=== PATIENT | female | born 1975 | race Caucasian/White ===

== ENCOUNTER 2020-11-20 17:14 | Emergency (ER) | payer OTHER ==
[~2020-11-20 17:14] MED LIST: IBUPROFEN800 MG PO
[2020-12-23] MEDS ORDERED: TUMS200 MG PO (12:34)
[2020-12-23] MEDS ORDERED: TRIAMCINOLONE 080 GM TOP (12:35)
[2020-12-23] MEDS ORDERED: ACETAMINOPHEN325 MG PO (12:50)
[2020-12-23] MEDS ORDERED: ZANTAC150 MG PO (12:51)
[2020-12-23] MEDS ORDERED: ASPIRIN EC81 MG PO (12:51)
[2020-12-31] MEDS ORDERED: AIRBORNE CHEWA1 EAC1 PO (07:34)
== END 2020-11-20 19:59 | disposition home or self-care (01) ==
LOC: FER 17:14
DX: D17.1 Benign lipomatous neoplasm of skin and subcutaneous tissue of trunk (principal); E11.9 Type 2 diabetes mellitus without complications; Z87.19 Personal history of other diseases of the digestive system; Z91.012 Allergy to eggs; Z79.82 Long term (current) use of aspirin; Z79.899 Other long term (current) drug therapy
CPT/HCPCS: 71250

== ENCOUNTER → 2020-12-31 | Day surgery (SDC) | payer OTHER ==
[~2020-12-31] MED LIST changes: +ACETAMINOPHEN325 MG PO; +AIRBORNE CHEWA1 EAC1 PO; +ASPIRIN EC81 MG PO; +TRIAMCINOLONE 080 GM TOP; +TUMS200 MG PO; +ZANTAC150 MG PO
[2020-12-31 08:18] LABS: HCG (URINE) SCREEN NEGATIVE (NEGATIVE)
== END | disposition home or self-care (01) ==
LOC: FAS 07:05
PROVIDERS: Anesthesiology
DX: M79.89 Other specified soft tissue disorders (principal); R22.2 Localized swelling, mass and lump, trunk; K21.9 Gastro-esophageal reflux disease without esophagitis; K44.9 Diaphragmatic hernia without obstruction or gangrene; K64.8 Other hemorrhoids; M71.9 Bursopathy, unspecified; Z20.822 Contact with and (suspected) exposure to COVID-19; Z91.012 Allergy to eggs; Z91.040 Latex allergy status; Z91.048 Other nonmedicinal substance allergy status; Z82.49 Family history of ischemic heart disease and other diseases of the circulatory system; Z80.3 Family history of malignant neoplasm of breast
CPT/HCPCS: 84703; 93005; J1885; J2001; J2250; J2704; J3010; J7120